=== PATIENT | female | born 1950 | race Caucasian/White ===

== ENCOUNTER 2017-03-09 05:34 | Day surgery (SDC) | payer MEDICARE, MEDICAID ==
[~2017-03-09] VITALS: Ht 167.6 cm; Wt 50.5 kg
[2017-03-09] MEDS ORDERED: SODIUM CHLORIDE 0.9% 1,000 ML IV ONE ×2 (06:00→06:03)
[2017-03-09] MEDS ORDERED: ALBU8HFA4 IH (06:32)
[2017-03-09] MEDS ORDERED: ALBU8.5H IH (06:32)
[2017-03-09] MEDS ORDERED: MULT1TAB70 PO (06:32)
[2017-03-09] MEDS ORDERED: MONT10TA21 PO (06:32)
[2017-03-09] MEDS ORDERED: FAMO20 PO (06:32)
[2017-03-09] MEDS ORDERED: METO-325 PO (06:32)
[2017-03-09] MEDS ORDERED: TIOT4MIS5 IH (06:32)
[2017-03-09] MEDS ORDERED: PREG75 PO (06:32)
[2017-03-09] MEDS ORDERED: FLUT16H NS (06:32)
[2017-03-09] MEDS ORDERED: ADV500 IH (06:32)
[2017-03-09] MEDS ORDERED: MIDAZOLAM HCL 2 MG/2 ML VIAL ONE (07:03)
[2017-03-09] MEDS ORDERED: FentaNYL CITRATE-PF 100 MCG/2 ML VIAL ONE (07:03)
[2017-03-09] MEDS ORDERED: MethylPREDNISolone SOD SUCC 125 MG/2 ML VIAL IVP ONE (08:45)
[2017-03-09] MEDS ORDERED: MethylPREDNISolone SOD SUCC 125 MG/2 ML VIAL ONE (08:48)
[2017-03-09] MEDS ORDERED: EPINEPHrine 1:1,000 [1 MG/ML] AMP IM ONE (14:39)
[2017-03-09] MEDS ORDERED: LIDOCAINE HCL 4% 50 ML SOLUTION TP ONE (14:39)
[2017-03-09] MEDS ORDERED: LIDOCAINE HCL 2% 30 ML JELLY TP ONE (14:39)
[2017-03-09] MEDS ORDERED: BENZOCAINE 20% 50 MCG/SPRAY 57 GM TP ONE (14:39)
[2017-03-09] MEDS ORDERED: ALBUTEROL SULFATE 2.5 MG/0.5 ML NEB SOLUTION NEB ONE (14:39)
[2017-03-09] MEDS ORDERED: OXYGEN THERAPY IH SCH (20:00)
== END 2017-03-09 10:10 | disposition home or self-care (01) ==
LOC: SURGERY 05:34
PROVIDERS: ATTEND Internal Medicine Critical Care Medicine
DX: J38.4 Edema of larynx (principal); B37.0 Candidal stomatitis; J44.9 Chronic obstructive pulmonary disease, unspecified; D71 Functional disorders of polymorphonuclear neutrophils; Z88.1 Allergy status to other antibiotic agents; Z90.710 Acquired absence of both cervix and uterus; Z90.49 Acquired absence of other specified parts of digestive tract; Z98.890 Other specified postprocedural states
CPT/HCPCS: 31623; 31624; 87015; 87070; 87101; 87205; 87220; 88108; 88184; 88185; 88312; J0171; J2250; J2930; J3010; J7030

== ENCOUNTER 2025-03-18 06:20 | Day surgery (SDC) | payer OTHER ==
[~2025-03-18] VITALS: Ht 167.6 cm; Wt 43.2 kg
[~2025-03-18 06:20] MED LIST: ALBU8.5H8 IH; ALBU8HFA4 IH; FAMO20 PO; FLUT16H NS; FLUT1BLS7 IH; METO-325 PO; MONT-35 PO; MULT-660 PO; PREG75 PO; TIOT4MIS5 IH
[2025-03-18] MEDS ORDERED: BENZOCAINE 20% 50 MCG/SPRAY 57 GM TP ONE (06:21)
[2025-03-18] MEDS ORDERED: LIDOCAINE 2% 11 ML JELLY TP ONE (06:21)
[2025-03-18] MEDS ORDERED: LIDOCAINE 4% 50 ML SOLUTION TP ONE (06:21)
[2025-03-18] MEDS ORDERED: ALBUTEROL SULFATE 2.5 MG/0.5 ML NEB SOLUTION NEB ONE (06:21)
[2025-03-18] MEDS ORDERED: SODIUM CHLORIDE 0.9% 1,000 ML ONE (06:40)
[2025-03-18] MEDS ORDERED: BACL20TA PO (07:11)
[2025-03-18] MEDS ORDERED: LINA72CA PO (07:11)
[2025-03-18] MEDS ORDERED: AZEL137S8 NASAL (07:11)
[2025-03-18] MEDS ORDERED: NYST30OI6 TP (07:11)
[2025-03-18] MEDS ORDERED: CETI10TA58 PO (07:11)
[2025-03-18] MEDS ORDERED: ATOR40TA71 PO (07:11)
[2025-03-18] MEDS ORDERED: DOCU-385 PO (07:11)
[2025-03-18] MEDS ORDERED: DOXY-466 PO (07:11)
[2025-03-18] MEDS ORDERED: ALEN70TA80 PO (07:11)
[2025-03-18] MEDS ORDERED: PREG75 PO (07:11)
[2025-03-18] MEDS ORDERED: IPRA4AER IH (07:11)
[2025-03-18] MEDS ORDERED: BUDE10.7 IH (07:11)
[2025-03-18] MEDS ORDERED: OMEP20CA12 PO (07:11)
[2025-03-18] MEDS: SODIUM CHLORIDE 0.9% 1,000 ML IV ONE (07:38)
[2025-03-18] MEDS ORDERED: FentaNYL CITRATE PF 100 MCG/2 ML VIAL ONE (08:10)
[2025-03-18] MEDS ORDERED: MIDAZOLAM HCL 2 MG/2 ML VIAL ONE (08:10)
[2025-03-18 09:26] VITALS: PULSE 103; RESP 18; O2SAT 96
== END 2025-03-18 13:20 | disposition home or self-care (01) ==
LOC: SDS 06:20
PROVIDERS: ATTEND Internal Medicine Critical Care Medicine
DX: R05.3 Chronic cough (principal); J38.4 Edema of larynx; B37.0 Candidal stomatitis; J44.9 Chronic obstructive pulmonary disease, unspecified; I10 Essential (primary) hypertension; Z88.1 Allergy status to other antibiotic agents; Z90.710 Acquired absence of both cervix and uterus; Z98.890 Other specified postprocedural states; Z79.899 Other long term (current) drug therapy; I69.351 Hemiplegia and hemiparesis following cerebral infarction affecting right dominant side
CPT/HCPCS: 31623; 87206; 87101; 87220; 87070; 88108; 31624; 71045; 71250; 87015; J3010; J2250; J2919; J7030; J7613; Z7610